=== PATIENT | female | born 1945 | race Caucasian/White ===

== ENCOUNTER 2016-09-22 11:39 | Day surgery (SDC) | payer OTHER, MEDICARE ==
[~2016-09-22] VITALS: Ht 175.3 cm; Wt 90.6 kg
[2016-09-22] VITALS (382 sets, daily range): BP systolic 150–178; BP diastolic 71–90; PULSE 80–88; TEMP 97.7–98.6; O2SAT 91–98
[~2016-09-22 11:39] MED LIST: ASPIRIN E.C. 8181 MG PO; CARDIZEM CD 24240 MG PO; COLACE 100100 MG/CAP PO; LANTUS100 U/ML SC; LEVAQUIN 750MG750 M1 PO; LIPITOR20 MG PO; LOPRESSOR 550 MG/TAB PO; MAALOX EXTRA S150 ML PO; NYSTATIN CREAM15 GM TP; PLAVIX 75MG TAB75 MG PO; PRILOSEC 20MG20 MG PO; PROZAC 20MG20 MG PO; SYNTHROID0.075 MG/T PO; UNABLE; VICTOZA6 MG/ML SC
[2016-09-22 12:44] LABS: INR 1.1 (0.8-3.0); PROTHROMBIN TIME 11.8 SECONDS (9.7-12.8)
[2016-09-22 12:51] LABS: HEMATOCRIT 40.8 % (37.0-47.0); HEMOGLOBIN 14.1 g/dl (12.5-16.0); MEAN CELL VOLUME 87 fl (80.0-100.0); MEAN CORPUSCULAR HEMOGLOBIN 30 pg (27.0-31.0); MEAN CORPUSCULAR HGB CONC 35 g/dl (33.0-37.0); MEAN PLATELET VOLUME 10.3 fl (7.4-10.4); PLATELET COUNT 247 K/mm3 (130-400); RED BLOOD COUNT 4.68 M/mm3 (4.10-5.30); REDCELL DISTRIBUTION WIDTH-CV 13.6 % (11.5-14.5); WHITE BLOOD COUNT 11.9 K/mm3 (4.8-10.8)
[2016-09-22] MEDS ORDERED: FORT1000TA PO (13:06)
[2016-09-22] MEDS ORDERED: BEVESPI AEROS10.7 GM IH (13:06)
[2016-09-22] MEDS ORDERED: PRINIVIL40 MG PO (13:07)
[2016-09-22] MEDS ORDERED: COREG12.5 MG PO (13:08)
[2016-09-22] MEDS ORDERED: LASIX 40MG TABL40 MG PO (13:09)
[2016-09-22] MEDS ORDERED: PRAVACHOL10 MG PO (13:10)
[2016-09-22] MEDS ORDERED: TYLENOL 500MG500 MG PO (13:10)
[2016-09-22 13:24] LABS: CALCIUM 9.3 mg/dL (8.4-10.2); CREATININE, serum 0.89 mg/dL (0.52-1.25); POTASSIUM 3.9 mmol/L (3.4-5.0)
[2016-09-23] VITALS (416 sets, daily range): BP systolic 149–161; BP diastolic 69–83; PULSE 81–88; TEMP 97.8–98.5; O2SAT 91–98
[2016-09-23 08:07] LABS: CALCIUM 8.8 mg/dL (8.4-10.2); CREATININE, serum 0.77 mg/dL (0.52-1.25); POTASSIUM 3.5 mmol/L (3.4-5.0)
== END 2016-09-23 09:57 | disposition home or self-care (01) ==
LOC: COL.CAR 11:39 → IMCU 16:17 → COL.CAR 09-23 09:57
PROVIDERS: Internal Medicine Interventional Cardiology
DX: I25.10 Atherosclerotic heart disease of native coronary artery without angina pectoris (principal); I11.0 Hypertensive heart disease with heart failure; I50.22 Chronic systolic (congestive) heart failure; E11.9 Type 2 diabetes mellitus without complications; E03.9 Hypothyroidism, unspecified; F32.9 Major depressive disorder, single episode, unspecified; Z87.891 Personal history of nicotine dependence; Z79.84 Long term (current) use of oral hypoglycemic drugs; Z82.49 Family history of ischemic heart disease and other diseases of the circulatory system
CPT/HCPCS: OP; C1725; C1760; C1769; C1874; C1887; C9600; J0360; J0583; J2250; J2405; J3010; Q9967